=== PATIENT | male | born 1975 | race Two or more races ===

== ENCOUNTER 2018-10-26 01:05 | Inpatient (IN) | payer MEDICAID ==
[~2018-10-26] VITALS: Ht 170.2 cm; Wt 74.1 kg
[2018-10-26] MEDS ORDERED: PANTOPRAZOLE 40 MG IV ONE (01:24)
[2018-10-26] MEDS: PANTOPRAZOLE 80 MG in SODIUM CHLORIDE 0.9% 100 ML IV SCH ×4 (01:25→21:11)
[2018-10-26] MEDS ORDERED: PANTOPRAZOLE 40 MG IV IVPush ONE (01:30)
[2018-10-26 01:31] LABS: BASOPHILS # (AUTO) 0.03 x10^3/uL (0-0.1); BASOPHILS % (AUTO) 0 % (0-1); EOSINOPHILS % (AUTO) 0 % (1-7); LYMPHOCYTES % (AUTO) 10 % (22-44); MD NO; MEAN CORPUSCULAR HEMOGLOBIN 34.9 pg (27.5-34.5); MEAN CORPUSCULAR HGB CONC 33.9 g/dL (33.2-36.2); MEAN PLATELET VOLUME 6.4 fL (7.4-10.4); MONOCYTES % (AUTO) 5 % (2-9); NEUTROPHILS # (AUTO) 9.28 x10^3/uL (1.8-6.8); NEUTROPHILS % (AUTO) 85 % (42-75); PLATELET COUNT 208 x10^3/uL (130-400); RED CELL DISTRIBUTION WIDTH 13.6 % (9.4-14.8)
--- NOTE | 2018-10-26 01:34 | NUR ---
PT TO US
[2018-10-26] MEDS ORDERED: LIDODERM 5% PATCH TD ONE ×2 (01:47→02:00)
[2018-10-26] MEDS ORDERED: ACETAMINOPHEN 500 MG TABLET ONE (01:47)
[2018-10-26] MEDS ORDERED: ONDANSETRON 2MG/ML, 2ML IVPush PRN (02:00)
[2018-10-26] MEDS ORDERED: ACETAMINOPHEN 500 MG TABLET PO ONE (02:00)
[2018-10-26] MEDS ORDERED: LORazepam 2 MG/ML, 1ML IVPush PRN (02:00)
[2018-10-26] MEDS ORDERED: FOLIC ACID 5 MG/ML IM ONE (02:30)
[2018-10-26] MEDS ORDERED: LORazepam 2 MG/ML, 1ML IV PRN ×2 (02:30)
[2018-10-26] MEDS ORDERED: ONDANSETRON 2MG/ML, 2ML IV PRN (02:30)
[2018-10-26 02:45] VITALS: BP 102/68
[2018-10-26] MEDS ORDERED: [UNRECOGNIZED DRUG - CODE] PO (03:30)
[2018-10-26] MEDS: SODIUM CHLORIDE 0.9% 1,000 ML IV SCH ×3 (03:31→23:04)
[2018-10-26 04:48] LABS: BASOPHILS # (AUTO) 0.02 x10^3/uL (0-0.1); BASOPHILS % (AUTO) 0 % (0-1); EOSINOPHILS # (AUTO) 0.08 x10^3/uL (0-0.4); EOSINOPHILS % (AUTO) 1 % (1-7); LYMPHOCYTES # (AUTO) 1.62 x10^3/uL (1-3.4); LYMPHOCYTES % (AUTO) 13 % (22-44); MD NO; MEAN CORPUSCULAR HEMOGLOBIN 35.2 pg (27.5-34.5); MEAN CORPUSCULAR HGB CONC 34.5 g/dL (33.2-36.2); MEAN CORPUSCULAR VOLUME 102.2 fL (81-97); MEAN PLATELET VOLUME 6.8 fL (7.4-10.4); MONOCYTES # (AUTO) 0.71 x10^3/uL (0.2-0.8); MONOCYTES % (AUTO) 6 % (2-9); NEUTROPHILS # (AUTO) 9.92 x10^3/uL (1.8-6.8); NEUTROPHILS % (AUTO) 80 % (42-75); PLATELET COUNT 197 x10^3/uL (130-400); RED BLOOD COUNT 4.86 x10^6/uL (4.38-5.82)
[2018-10-26 04:54] LABS: INTERNATIONAL NORMALIZED RATIO 0.96 (0.93-1.1); PROTHROMBIN TIME 10.1 Seconds (9.6-11.5)
[2018-10-26 05:00] LABS: ANION GAP 14 mmol/L (5-15); CALCIUM 8.5 mg/dL (8.5-10.1); CHLORIDE 100 mmol/L (98-107)
[2018-10-26] MEDS: LORazepam 2 MG/ML, 1ML IV PRN ×5 (05:00→23:04)
[2018-10-26 05:02] LABS: CREATININE 0.96 mg/dL (0.7-1.3)
[2018-10-26 08:15] VITALS: BP 129/84
[2018-10-26] MEDS: MULTIVITAMINS/MINERALS TABLET PO SCH (09:00)
[2018-10-26 10:03] LABS: BASOPHILS % (AUTO) 0 % (0-1); EOSINOPHILS # (AUTO) 0.02 x10^3/uL (0-0.4); EOSINOPHILS % (AUTO) 0 % (1-7); LYMPHOCYTES # (AUTO) 1.03 x10^3/uL (1-3.4); LYMPHOCYTES % (AUTO) 10 % (22-44); MD NO; MEAN CORPUSCULAR HEMOGLOBIN 35.1 pg (27.5-34.5); MEAN CORPUSCULAR HGB CONC 34.1 g/dL (33.2-36.2); MEAN PLATELET VOLUME 6.8 fL (7.4-10.4); MONOCYTES # (AUTO) 0.67 x10^3/uL (0.2-0.8); MONOCYTES % (AUTO) 6 % (2-9); NEUTROPHILS # (AUTO) 8.94 x10^3/uL (1.8-6.8); NEUTROPHILS % (AUTO) 84 % (42-75); PLATELET COUNT 164 x10^3/uL (130-400); RED BLOOD COUNT 4.79 x10^6/uL (4.38-5.82); RED CELL DISTRIBUTION WIDTH 13.6 % (9.4-14.8)
[2018-10-26 12:13] LABS: ALBUMIN 4.1 g/dL (3.4-5.0); BILIRUBIN, DIRECT 0.4 mg/dL (0.1-0.2)
[2018-10-26 12:15] LABS: BILIRUBIN,INDIRECT 0.7 mg/dL (0.0-2.0); BILIRUBIN,TOTAL 1.1 mg/dL (0.2-1.0); TOTAL PROTEIN 7.4 g/dL (6.4-8.2)
[2018-10-26 13:24] VITALS: BP 132/86
[2018-10-26 14:44] LABS: BASOPHILS # (AUTO) 0.02 x10^3/uL (0-0.1); BASOPHILS % (AUTO) 0 % (0-1); EOSINOPHILS # (AUTO) 0.02 x10^3/uL (0-0.4); EOSINOPHILS % (AUTO) 0 % (1-7); LYMPHOCYTES # (AUTO) 1.24 x10^3/uL (1-3.4); LYMPHOCYTES % (AUTO) 14 % (22-44); MD NO; MEAN CORPUSCULAR HEMOGLOBIN 34.5 pg (27.5-34.5); MEAN CORPUSCULAR VOLUME 101.5 fL (81-97); MEAN PLATELET VOLUME 6.9 fL (7.4-10.4); MONOCYTES # (AUTO) 0.59 x10^3/uL (0.2-0.8); MONOCYTES % (AUTO) 7 % (2-9); NEUTROPHILS # (AUTO) 7.15 x10^3/uL (1.8-6.8); NEUTROPHILS % (AUTO) 79 % (42-75); PLATELET COUNT 164 x10^3/uL (130-400); RED BLOOD COUNT 4.65 x10^6/uL (4.38-5.82); RED CELL DISTRIBUTION WIDTH 13.9 % (9.4-14.8)
[2018-10-26] MEDS: OXYcodone/APAP 5/325MG TABLET PO PRN ×2 (17:00→21:13)
[2018-10-26 20:46] VITALS: BP 135/90
[2018-10-26 22:51] VITALS: BP 123/80
[2018-10-27 01:58] VITALS: BP 128/86
[2018-10-27 05:06] LABS: ALBUMIN 3.2 g/dL (3.4-5.0); ANION GAP 6 mmol/L (5-15); CALCIUM 8.1 mg/dL (8.5-10.1); CHLORIDE 104 mmol/L (98-107)
[2018-10-27 05:08] LABS: BASOPHILS # (AUTO) 0.02 x10^3/uL (0-0.1); BASOPHILS % (AUTO) 0 % (0-1); EOSINOPHILS # (AUTO) 0.07 x10^3/uL (0-0.4); EOSINOPHILS % (AUTO) 1 % (1-7); LYMPHOCYTES # (AUTO) 1.19 x10^3/uL (1-3.4); LYMPHOCYTES % (AUTO) 17 % (22-44); MD NO; MEAN PLATELET VOLUME 7.1 fL (7.4-10.4); MONOCYTES # (AUTO) 0.48 x10^3/uL (0.2-0.8); MONOCYTES % (AUTO) 7 % (2-9); NEUTROPHILS # (AUTO) 5.33 x10^3/uL (1.8-6.8); NEUTROPHILS % (AUTO) 75 % (42-75); PLATELET COUNT 105 x10^3/uL (130-400); RED BLOOD COUNT 4.29 x10^6/uL (4.38-5.82); RED CELL DISTRIBUTION WIDTH 13.9 % (9.4-14.8)
[2018-10-27 05:10] LABS: ALANINE AMINOTRANSFERASE 50 U/L (12-78); ALKALINE PHOSPHATASE 58 U/L (45-117); BILIRUBIN,TOTAL 2.4 mg/dL (0.2-1.0); CREATININE 0.85 mg/dL (0.7-1.3); TOTAL PROTEIN 5.8 g/dL (6.4-8.2)
[2018-10-27 05:15] VITALS: BP 126/98
[2018-10-27] MEDS: LORazepam 2 MG/ML, 1ML IV PRN ×3 (05:25→21:05)
[2018-10-27 07:10] VITALS: BP 136/83
[2018-10-27] MEDS ORDERED: PROPOFOL 10 MG/ML, 20ML ONE ×2 (08:01→08:02)
[2018-10-27] MEDS ORDERED: DIPHENHYDRAMINE 50 MG/ML, 1ML IVPush PRN (08:30)
[2018-10-27] MEDS ORDERED: ONDANSETRON 2MG/ML, 2ML IV PRN (08:30)
[2018-10-27] MEDS ORDERED: FENTANYL PF 100 MCG/2ML IV PRN (08:30)
[2018-10-27] MEDS ORDERED: EPHEDRINE 50 MG/ML, 1ML IM PRN (08:30)
[2018-10-27] MEDS ORDERED: ONDANSETRON ODT 8 MG PO PRN (08:30)
[2018-10-27] MEDS ORDERED: MIDAZOLAM 1 MG/ML, 2ML IV PRN (08:30)
[2018-10-27] MEDS: MULTIVITAMINS/MINERALS TABLET PO SCH (09:00)
[2018-10-27 09:15] VITALS: BP 119/78
[2018-10-27] MEDS: THIAMINE 100 MG in DEXTROSE 5% 50 ML IVPB SCH (10:27)
[2018-10-27 12:00] VITALS: BP 128/80
[2018-10-27] MEDS: SODIUM CHLORIDE 0.9% 1,000 ML IV SCH (12:00)
[2018-10-27] MEDS ORDERED: POTASSIUM CHLORIDE 40 MEQ in SODIUM CHLORIDE 0.9% 500 ML IV ONE (12:30)
[2018-10-27] MEDS: OXYcodone/APAP 5/325MG TABLET PO PRN ×2 (14:13→21:05)
[2018-10-27] MEDS: OMEPRAZOLE 20 MG CAPSULE.DR PO SCH (16:56)
[2018-10-27 18:55] VITALS: BP 122/81
[2018-10-28 01:25] VITALS: BP 128/92
[2018-10-28] MEDS: LORazepam 2 MG/ML, 1ML IV PRN (02:35)
[2018-10-28] MEDS: POTASSIUM CHLORIDE 20 MEQ TAB.ER.PRT PO SCH ×2 (05:30→08:10)
[2018-10-28] MEDS ORDERED: POTASSIUM CHLORIDE 20 MEQ TAB.ER.PRT ONE (05:37)
[2018-10-28] MEDS: OMEPRAZOLE 20 MG CAPSULE.DR PO SCH ×2 (05:47→16:52)
[2018-10-28] MEDS: SODIUM CHLORIDE 0.9% 1,000 ML IV SCH ×2 (05:47→17:19)
[2018-10-28] MEDS: OXYcodone/APAP 5/325MG TABLET PO PRN (06:21)
[2018-10-28 06:22] VITALS: BP 116/80
[2018-10-28] MEDS: MULTIVITAMINS/MINERALS TABLET PO SCH (08:09)
[2018-10-28] MEDS: THIAMINE 100 MG in DEXTROSE 5% 50 ML IVPB SCH (08:10)
[2018-10-28] MEDS ORDERED: LIDODERM 5% PATCH TD SCH (09:00)
[2018-10-28] MEDS: GABAPENTIN 300 MG CAPSULE PO SCH ×2 (11:35→16:52)
[2018-10-28] MEDS ORDERED: LIDO700A20 TD (13:06)
[2018-10-28] MEDS ORDERED: OMEP-110 PO (13:06)
[2018-10-28] MEDS ORDERED: GABA300C10 PO (13:06)
[2018-10-28] MEDS ORDERED: MAGN400T26 PO (13:06)
[2018-10-28] MEDS ORDERED: ONDA4TAB13 SL (13:06)
[2018-10-28] MEDS ORDERED: THIA100T67 PO (13:06)
[2018-10-28] MEDS ORDERED: MULT-484 PO (13:06)
[2018-10-28] MEDS ORDERED: FOLI-17 PO (13:06)
[2018-10-28 14:30] VITALS: BP 128/88
[2018-10-28] MEDS: MAALOX/HYOSCYAMINE/LIDOCAINE 45 ML BTL PO ONE ×2 (15:32→16:52)
== END 2018-10-28 17:53 | disposition home or self-care (01) | DRG 380 ==
LOC: ED 02:12 → EDIP 02:13 → 4WST 02:34
PROVIDERS: ADMIT Internal Medicine; ATTEND Internal Medicine
PROC: 0DB68ZX Excision of Stomach, Via Natural or Artificial Opening Endoscopic, Diagnostic (ICD-10-PCS; principal; 2018-10-27 08:00)
DX: K22.11 Ulcer of esophagus with bleeding (principal); N17.0 Acute kidney failure with tubular necrosis; F10.220 Alcohol dependence with intoxication, uncomplicated; Y90.9 Presence of alcohol in blood, level not specified; K29.70 Gastritis, unspecified, without bleeding; Z59.0 Homelessness; Z87.19 Personal history of other diseases of the digestive system
CPT/HCPCS: 36415; 76700; 80048; 80053; 80076; 83690; 83735; 84132; 85025; 85610; 86850; 86900; 88305; 93005; 99285; G0378; J2704; J3411; J3480; C9113; J2060; J7030; J7040